=== PATIENT | female | born 1990 | race African-American/Black ===

== ENCOUNTER 2017-03-26 15:01 | Emergency (ER) | payer OTHER ==
[2017-03-26 15:09] VITALS: BP 129/74; PULSE 81; TEMP 99.3; BMI 45.7
--- NOTE | 2017-03-26 16:32 | PDOC ---
History of Present Illness - General Chief Complaint: Respiratory Stated Complaint: COUGH, CHILLS Time Seen by Provider: 03/26/17 16:28 Past History - Past Medical History Allergies/Adverse Reactions: Allergies Allergy/AdvReac Type Severity Reaction Status Date / Time sulfamethoxazole Allergy Verified 03/26/17 15:09 [From Bactrim] trimethoprim [From Bactrim] Allergy Verified 03/26/17 15:09 BEE STINGS Allergy Severe Uncoded 03/26/17 15:09 Home Medications: Ambulatory Orders Albuterol Sulfate Inhaler - [Ventolin HFA Inhaler -] 1 - 2 inh PO Q4H #1 inhaler 03/26/17 Azithromycin [Zithromax 250mg Tablets -] 250 mg PO UTDICT #6 tab 03/26/17 Guaifenesin AC [Robitussin AC] 10 ml PO HS #100 ml MDD 1 03/26/17 Prednisone [Deltasone] 40 mg PO BID #8 tablet 03/26/17 Anemia: Yes Asthma: Yes (bronchitis) Cardiac Disorders: Yes (PERICARDITIS) COPD: No - Family Disease History Family Disease History: Other: Father (OA) - Immunization History Immunization Up to Date: Yes (allergy to eggs) - Suicide/Smoking/Psychosocial Hx Smoking Status: No Smoking History: Never smoked Years of Tobacco Use: 0 Have you smoked in the past 12 months: No Number of Cigarettes Smoked Daily: 2 Information on smoking cessation initiated: No 'Breaking Loose' booklet given: 03/20/15 Hx Alcohol Use: No Drug/Substance Use Hx: No Substance Use Type: None *Physical Exam - Vital Signs Last Vital Signs Temp Pulse Resp BP Pulse Ox 99.3 F 81 18 129/74 99 03/26/17 15:06 03/26/17 15:06 03/26/17 15:06 03/26/17 15:06 03/26/17 15:06 *DC/Admit/Observation/Transfer Diagnosis at time of Disposition: Bronchitis - Discharge Dispostion Disposition: HOME Condition at time of disposition: Good Admit: No - Referrals Referrals: Fatmata Son MD [Primary Care Provider] - - Patient Instructions Printed Discharge Instructions: DI for Acute Bronchitis Additional Instructions: You have bronchitis. Please take the medications as prescribed. Your prescribed an inhaler, prednisone, Z-Heron, and Robitussin with codeine. Please do not drive after taking the Robitussin with codeine as it may make you sleepy. Please follow-up with your primary care doctor this week. Drink plenty of fluids. Return to emergency department if you have worsening cough, shortness of breath , difficulty breathing, or any changes in your symptoms. - Post Discharge Activity Forms/Work/School Notes: Back to Work
[2017-03-26] MEDS ORDERED: ALBUTEROL SO4 2.5/IPRATROPIUM 0.5 INH SOL 3 ML VIAL.NEB. NEB ONE ×4 (16:38→17:02)
[2017-03-26] MEDS ORDERED: guaiFENesin/CODEINE 10 ML UNIT-DOSE CUPS PO ONE (16:41)
[2017-03-26] MEDS ORDERED: predniSONE 20 MG TABLET (UD) PO ONE (16:41)
[2017-03-26] MEDS ORDERED: predniSONE 20 MG TABLET (UD) ONE (16:44)
[2017-03-26] MEDS ORDERED: guaiFENesin/CODEINE 5 ML UNIT-DOSE CUPS PO ONE (16:45)
== END 2017-03-26 17:38 | disposition home or self-care (01) ==
LOC: JERFT 15:01
PROC: 3E0F7GC Introduction of Other Therapeutic Substance into Respiratory Tract, Via Natural or Artificial Opening (ICD-10-PCS; principal; 2017-03-26)
PROC: 3E0F7GC Introduction of Other Therapeutic Substance into Respiratory Tract, Via Natural or Artificial Opening (ICD-10-PCS; 2017-03-26)
DX: J40 Bronchitis, not specified as acute or chronic (principal)
CPT/HCPCS: 94640; 99281-25